=== PATIENT | male | born 1965 | race Caucasian/White ===

== ENCOUNTER 2017-12-11 16:40 | Inpatient (IN) | payer OTHER ==
[~2017-12-11] VITALS: Ht 172.7 cm; Wt 78.5 kg
[~2017-12-11 16:40] MED LIST: CATAFLAM50 MG PO; PERCOCET 5/321 UDTAB PO; RECTICARE30 GM TP
[2017-12-18] MEDS ORDERED: PROTONIX40 MG PO (13:50)
[2017-12-18] MEDS ORDERED: FLAGYL500MG PO (13:50)
== END 2017-12-18 15:08 | disposition home or self-care (01) | DRG 338 ==
LOC: ER 16:40 → SURG 18:38 → SEC-K 18:38 → O/R 22:24 → SURG 12-12 13:46
PROVIDERS: Surgery
PROC: 0D9J00Z Drainage of Appendix with Drainage Device, Open Approach (ICD-10-PCS; 2017-12-11)
PROC: 3E1M38Z Irrigation of Peritoneal Cavity using Irrigating Substance, Percutaneous Approach (ICD-10-PCS; 2017-12-11)
PROC: BW21ZZZ Computerized Tomography (CT Scan) of Abdomen and Pelvis (ICD-10-PCS; 2017-12-11)
PROC: 0DTJ0ZZ Resection of Appendix, Open Approach (ICD-10-PCS; principal; 2017-12-11 20:00)
PROC: BW21Y0Z Computerized Tomography (CT Scan) of Abdomen and Pelvis using Other Contrast, Unenhanced and Enhanced (ICD-10-PCS; 2017-12-16)
DX: K35.3 Acute appendicitis with localized peritonitis (principal); A41.9 Sepsis, unspecified organism; B37.89 Other sites of candidiasis; I10 Essential (primary) hypertension; B96.20 Unspecified Escherichia coli [E. coli] as the cause of diseases classified elsewhere; B96.1 Klebsiella pneumoniae [K. pneumoniae] as the cause of diseases classified elsewhere; B95.2 Enterococcus as the cause of diseases classified elsewhere; B96.89 Other specified bacterial agents as the cause of diseases classified elsewhere; K64.8 Other hemorrhoids